=== PATIENT | female | born 1960 | race Caucasian/White ===

== ENCOUNTER 2023-06-30 11:51 | Emergency (ER) | payer BC, SELFPAY ==
[2023-06-30 11:54] VITALS: BP 163/89
--- NOTE | 2023-06-30 12:48 | ED.GENMED ---
History of Present Illness
<Sherin Steiner PA-C - Last Filed: 06/30/23 23:17>
General
Chief Complaint: Head Injury
Source: patient
Exam Limitations: none
Time Seen by Provider: 06/30/23 12:14
Nursing documentation reviewed up to this point in time: agreed with
Travel History
Have you had any contact with someone who has COVID-19?: No
Do you have any symptoms of coronavirus? Fever > 100 degrees, chills, cough, shortness of breath, sore throat, loss of taste or smell, muscle aches, or headache?: No
History of Present Illness
History of Present Illness:
Patient is a 62 y.o female presenting for evaluation of head injury. Patient was in [place] watching fireworks on Thursday evening around 1030 PM when she fell backwards striking the back of her head on the pavement. She is unsure exactly what
led to her fall- believes that she may have tripped on the curb. She denies any dizziness, lightheadedness, chest pain, shortness of breath prior to the fall. The fall was witnessed by her daughter and her son-in-law. She did not lose conscious.
She denies any retrograde amnesia. [place] but did not seek any further medical evaluation.
She is currently complaining of intermittent headaches and mild dizziness since the fall. She denies any vomiting, visual changes, confusion. She has been ambulating without difficulty since fall.
She is not on any blood thinners.
Phy Exam
<Sherin Steiner PA-C - Last Filed: 06/30/23 23:17>
Physical Exam
Physical Exam:
General: Well appearing and non-toxic
Vitals: Hypertensive, otherwise vital signs stable, afebrile
HEENT: Atraumatic, normocephalic, tenderness to posterior scalp without any obvious hematoma or laceration, pupils equal round and reactive to light bilaterally, extraocular muscles intact, protecting airway
Neck: appears supple, no cervical spine or midline spinal tenderness; some mild tenderness over left trapezius
CV: Regular rate and rhythm, heart sounds normal, no evidence of cyanosis
Resp: No evidence of respiratory distress, lungs clear, no accessory muscle use
Abd: Non-distended
Extremities: No deformities, no evidence of cyanosis or edema; strength 5 out of 5 in upper and lower extremities
Neuro: alert and oriented to person place time, speech normal, no focal neurologic deficits, cranial nerves II through XII intact, normal finger-nose, sensation fully intact
Psych: Normal affect
Skin: Intact, no rashes or bruising
Course
<Sherin Steiner PA-C - Last Filed: 06/30/23 23:17>
Orders/Labs/Results
Orders:
Orders
06/30/23 13:32
CT Head W/o Iv Contrast Urgent
Comment:
Reason For Exam: fall w/ occipital head strike
Vital Signs
Initial and Last Documented VS:
Initial Vital Signs
Temp Pulse Resp BP Pulse Ox
97.7 F 56 20 163/89 96
06/30/23 11:54 06/30/23 11:54 06/30/23 11:54 06/30/23 11:54 06/30/23 11:54
Last Documented Vital Signs
Temp Pulse Resp BP Pulse Ox
97.7 F 56 20 163/89 96
06/30/23 11:54 06/30/23 11:54 06/30/23 11:54 06/30/23 11:54 06/30/23 11:54
<Michele Chapin MD - Last Filed: 06/30/23 14:58>
Orders/Labs/Results
Orders:
Orders
06/30/23 13:32
CT Head W/o Iv Contrast Urgent
Comment:
Reason For Exam: fall w/ occipital head strike
Vital Signs
Initial and Last Documented VS:
Initial Vital Signs
Temp Pulse Resp BP Pulse Ox
97.7 F 56 20 163/89 96
06/30/23 11:54 06/30/23 11:54 06/30/23 11:54 06/30/23 11:54 06/30/23 11:54
Last Documented Vital Signs
Temp Pulse Resp BP Pulse Ox
97.7 F 56 20 163/89 96
06/30/23 11:54 06/30/23 11:54 06/30/23 11:54 06/30/23 11:54 06/30/23 11:54
<Sherin Steiner PA-C - Last Filed: 06/30/23 23:17>
MDM/Problems Addressed
Differential Diagnosis Includes:
Contusion, concussion, subdural hematoma, intraparenchymal hemorrhage, doubt skull fracture, muscle strain, etc.
MDM/Problems Addressed:
Patient is a 62 y.o female presenting for evaluation following fall with head strike 4 days ago. Complaining of persistent headache with mild dizziness since. No vomiting, LOC. On no thinners. She is hypertensive, otherwise normal vital signs.
Physical exam as documented above. No obvious hematoma. Neuro exam without any focal deficits. Normal finger to nose. Full strength in upper and lower extremities. Some mild tenderness of left upper trapezius - likely muscle strain. Given persistent
headache - will get CT. Patient declines tylenol at this time.
CT negative for acute abnormality. Did find meningioma which has been known to patient for the past 20 years with routine monitoring.
Suspect likely minor concussion from fall. Stable for discharge with close return precautions, tylenol/NSAIDS, primary care follow-up as needed. Patient comfortable with this plan. All questions answered.
Chronic conditions affecting care:
Meningioma
Acute Exacerbation and/or Progression of Chronic Illness:
Acutely hypertensive
<Sherin Steiner PA-C - Last Filed: 06/30/23 23:17>
*Radiology
Radiology exam reviewed: preliminary read by ED provider and radiology read reviewed
*Pulse Oximetry
Patient hypoxic: no
*Horse Trainer Interpretation
Rate: Horse Trainer- N/A
*Critical Care Note
Total Time (30-74mins, 75-104mins- exclusive of procedures): Not Applicable
ED Attending Note
<Sherin Steiner PA-C - Last Filed: 06/30/23 23:17>
-
Portions of this chart may have been created with voice recognition software.� Occasional wrong word or��sound alike� substitutions may have occurred due to the inherent limitations of voice recognition software.
<Michele Chapin MD - Last Filed: 06/30/23 14:58>
ED Attending Note
Patient seen and examined by attending physician: Yes
ED Attending Note:
HPI: 62-year-old female with history of anxiety/depression who presents to the emergency room for evaluation of mild headache since a head trauma. Patient reports that she fell 3 days ago�she says that she fell backwards hit the back of her head.
Does not believe that she lost consciousness, says that she did not have any serious injuries at the time and elected not to go to the emergency room. She says that the next day she noted she had a mild headache and she has had an intermittent
nagging headache since. She decided she would go to urgent care today to be evaluated but they directed her to the emergency room instead. She denies any nausea or vomiting. She denies any weakness or numbness in her extremities. She says she
has some very mild pain in her left trapezius/shoulder but no other complaints. Not on any blood thinners.
ROS: Positive for headache, left shoulder/neck pain; negative for nausea, vomiting, weakness or numbness in the extremities
Physical exam:
General: Awake, alert, oriented x3 with GCS 15; no acute distress
Head: Normocephalic, atraumatic
Eyes: Conjunctiva normal, EOMI, pupils equal round and reactive to light bilaterally, visual coleman intact
Throat: Airway intact, handling secretions
Neck: Trachea midline, no cervical spine tenderness; some very mild tenderness along the left trapezius
Back: No tenderness in the thoracic or lumbar spine
Lungs: Breathing comfortably no distress
Heart: Regular rate
Neuro: Cranial nerves intact 2 through 12, speech fluent without dysarthria aphasia, no limb ataxia, motor and sensory function intact upper and lower extremities, ambulatory with normal gait
Skin: no rash
Extremities: Warm well-perfused
Differential diagnosis: Concussion, subdural hematoma, parenchymal hemorrhage, migraine, tension headache
Medical decision m[age]-year-old female presents for evaluation of intermittent headache since a head trauma 3 days ago. Hypertensive but otherwise normal vitals here. Physical exam as above. Sent for CT head which was negative for any acute
pathology. It did show a meningioma which is known to the patient and has been stable for 20 years she says. Possibly mild concussion or tension headache. Advised Tylenol/Motrin as needed and she will follow-up with her primary doctor. Spoke
about return precautions all questions answered.
Chronic conditions affecting care: N/A
Acute exacerbation or progression of chronic illness: Acutely hypertensive
History source: Patient
Data reviewed: N/A
Medications/testing considered: N/A
Social determinants of health: N/A
Discussion with other providers: KRISTY discussed with radiologist
Discharge Plan
Departure
Patient Disposition: Home (Routine Discharge)
Date of Disposition: 06/30/23
Time of Disposition: 14:54
Patient with high blood pressure during this ER visit?: Yes
Condition: Good
Discharge Problem:
Head injury, Muscle strain
Instructions: Concussion, Adult (DC), Muscle Strain (DC), BLOOD PRESSURE
Referrals:
Trish Spring, DO [Family Provider] - As needed
Activity Restrictions/Additional Instructions:
- Return to the emergency department with any severe headache, intractable vomiting, visual changes, confusion, persistent dizziness, worsening in current symptoms, or any other concerns
-You can take tylenol/ advil as needed for discomfort
-As discussed - a meningioma was seen on your head CT scan today. You should continue to have this monitored.
-Follow-up with primary care as needed for further evaluation/treatment
Interventions
Interventions:
*Risk Screen - Suicide Last Done: 06/30/23 12:23
*General Assessment Last Done: 06/30/23 12:23
*Neglect/Abuse Screening Last Done: 06/30/23 12:23
*ED COVID-19 Vaccine History Last Done: 06/30/23 12:23
*Nursing Disposition Last Done: 06/30/23 15:09
ED- Neurological Assessment Last Done: 06/30/23 12:25
ED-Skin Assessment Last Done: 06/30/23 12:25
Discharge Date and Time
Discharge Date/Time: 06/30/23 15:09
== END 2023-06-30 15:09 | disposition home or self-care (01) ==
LOC: EMR 11:51
PROVIDERS: EMERGENCY PHYSICIAN Emergency Medicine; FAMILY PHYSICIAN Family Medicine
DX: S09.90XA Unspecified injury of head, initial encounter (principal); S46.812A Strain of other muscles, fascia and tendons at shoulder and upper arm level, left arm, initial encounter; W19.XXXA Unspecified fall, initial encounter; R03.0 Elevated blood-pressure reading, without diagnosis of hypertension
CPT/HCPCS: 99284; 70450